=== PATIENT | male | born 1940 | race Caucasian/White ===

== ENCOUNTER → 2018-08-30 | Outpatient (CLI) | payer OTHER ==
--- NOTE | 2018-09-04 09:31 | P.ARTDOP ---
Arterial Doppler LOWER EXTREMITY ARTERIAL DOPPLER: DATE OF SERVICE: 08/30/2018 Reason for study: Bilateral claudication. Doppler waveforms: Atypical bilaterally throughout. Pulse volume recording: []. Pressure gradients: Above the low thigh level. Ankle-brachial indices: 0.52 on the right and 0.68 on the left. Toe pressures: 59 on the right, 56 on the left Impression: Moderate bilateral iliofemoral occlusive disease. Consider vascular surgery consultation.
== END | disposition home or self-care (01) ==
LOC: RADUSWWP 13:12
DX: I73.9 Peripheral vascular disease, unspecified (principal)
CPT/HCPCS: 93923

== ENCOUNTER → 2018-11-25 | Outpatient (CLI) | payer OTHER ==
[2018-11-25 13:14] LABS: HCT 40.3 % (39.0-53.0); HGB 13.8 gm/dL (13.0-17.5); MCH 33.7 pg (25.0-35.0); MCHC 34.4 g/dL (31.0-37.0); MCV 98.1 fL (80.0-100.0); Mean Platelet Volume 6.7; Platelet Count 242 k/uL (150-450); RDW 13.3 % (11.5-15.5); WBC 5.9 k/uL (3.8-10.6)
== END | disposition home or self-care (01) ==
LOC: LABPAT 12:21
PROVIDERS: ATTEND Internal Medicine Interventional Cardiology
DX: Z01.812 Encounter for preprocedural laboratory examination (principal); I73.9 Peripheral vascular disease, unspecified
CPT/HCPCS: 36415; 80051; 82565; 84520; 85027

== ENCOUNTER → 2018-11-27 | Day surgery (SDC) | payer OTHER ==
[2018-11-22 16:48] VITALS: BMI 28.1
[~2018-11-27] MED LIST: ALPRAZolam 0.25 MG TAB PO PRN; ASPIRIN 325 MG TAB PO STA; IOPAMIDOL-370 100ML BTL INJ ONE; LIDOCAINE 1% INJ 10MG/ML (20 ML MDV) SQ ONE; MIDAZOLAM 2 MG/2 ML VIAL IV ONE; SODIUM CHLORIDE 0.9% 1,000 ML IV SCH; SODIUM CHLORIDE 0.9% 1,000 ML in EMPTY BAG 1 BAG IV ONE
[2018-11-27 11:45] VITALS: RESP 18
[2018-11-27 11:49] LABS: Glucose,Whole Blood 96 mg/dL (75-99)
--- NOTE | 2018-11-27 14:15 | CC ---
CARDIAC CATHETERIZATION REPORT DATE OF SERVICE: 11/27/2018 PERFORMING PHYSICIAN: Cayden Archer MD. PROCEDURE PERFORMED: 1. An abdominal aortogram. 2. Bilateral lower extremity runoff. INDICATION: This is a pleasant 78-year-old gentleman with history of diabetes, hypertension, dyslipidemia, who sees Dr. Lazo in the office as an outpatient who was experiencing bilateral lower extremity intermittent claudication. He underwent an arterial duplex study by Dr. Lazo and was found to have severe bilateral femoral- popliteal disease. Because of that, he was brought today to undergo an aortogram with runoff. APPROACH: Right common femoral artery. COMPLICATION: None. LEVEL OF SEDATION: Moderate with a sedation length of 16 minutes. PROCEDURE DESCRIPTION: After obtaining an informed consent, the patient was brought to the cardiac cardiac cath lab radiology technologist. The right common femoral artery was cannulated using micropuncture technique, the micropuncture wire passed easily, then I placed a 5-Kazakh sheath. After that, I did an abdominal aortogram and bilateral lower extremities runoff using 5-Kazakh pigtail catheter which was initially placed at the level of the renal arteries. Then it was pulled into above the bifurcation of the aorta to right and left common iliac arteries. The procedure was completed without any complication. SELECTIVE PERIPHERAL ANGIOGRAM: 1. The aorta is calcified. It does have mild occlusive disease. 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 2. Common iliac arteries, the right common and left common iliac arteries are calcified. The right common iliac artery appeared to be angiographically normal. The ostial of the left common iliac artery appeared to have a lesion in the range of 60% to 70%. 3. Internal iliac arteries are patent. 4. External iliac artery appeared to have mild occlusive disease only. 5. Profunda are patent. 6. SFA, the right and left SFA are calcified with critical disease bilaterally. 7. Popliteal, the right popliteal appeared to have mild disease only. The left popliteal appeared to have critical lesion. 8. Below the knee, the arteries below the knee were not were not well visualized because of the patient portion. CONCLUSION: 1. Intermediate to severe disease involving the ostial left common iliac artery. 2. Critical bilateral femoral-popliteal disease. 3. Poorly visualized arteries below the knee bilaterally due to the patient motion during digital subtraction. POSTPROCEDURE MANAGEMENT: 1. FLORAL MERCHANDISER of the right and left SFA to be done. 2. Gradient check across the left common iliac artery to assess for the severity of the lesion. MMODL / IJN: [id number] /
--- NOTE | 2018-11-27 14:35 | IR ---
Fluoroscopy HISTORY: Pain in left leg 2.1 minutes fluoroscopy time supplied to the referring clinician. 102 intraoperative C-arm images do cument the procedure. See dictated report from cardiology.
[2018-11-27 18:27] VITALS: BP 131/77; PULSE 72
== END ==
LOC: CATHCVL 11:11
PROVIDERS: ATTEND Internal Medicine Interventional Cardiology
DX: I70.213 Atherosclerosis of native arteries of extremities with intermittent claudication, bilateral legs (principal); I70.0 Atherosclerosis of aorta; I71.9 Aortic aneurysm of unspecified site, without rupture; E11.51 Type 2 diabetes mellitus with diabetic peripheral angiopathy without gangrene; E78.5 Hyperlipidemia, unspecified; I10 Essential (primary) hypertension; E78.00 Pure hypercholesterolemia, unspecified; R01.1 Cardiac murmur, unspecified; Z87.891 Personal history of nicotine dependence; Z95.1 Presence of aortocoronary bypass graft; Z79.84 Long term (current) use of oral hypoglycemic drugs; Z79.02 Long term (current) use of antithrombotics/antiplatelets; Z79.899 Other long term (current) drug therapy
CPT/HCPCS: 36200; 75625; 75716; C1769 ×4; C1894; J2250; J2001; Q9967

== ENCOUNTER 2018-12-02 07:35 | Day surgery (SDC) | payer OTHER ==
[~2018-12-02 07:35] MED LIST changes: +ASPIRIN 325 MG TAB PO ONE; -ASPIRIN 325 MG TAB PO STA; -IOPAMIDOL-370 100ML BTL INJ ONE; -LIDOCAINE 1% INJ 10MG/ML (20 ML MDV) SQ ONE; -MIDAZOLAM 2 MG/2 ML VIAL IV ONE; -SODIUM CHLORIDE 0.9% 1,000 ML IV SCH
[2018-12-02] MEDS ORDERED: hydrALAZINE HCL 20 MG/ML 1 ML VIAL IVP STA ×2 (08:10→16:05)
[2018-12-02 08:18] LABS: Glucose,Whole Blood 118 mg/dL (75-99)
[2018-12-02] MEDS ORDERED: SODIUM CHLORIDE 0.9% 1,000 ML IV ONE (08:25)
[2018-12-02 08:26] LABS: HCT 39.2 % (39.0-53.0); HGB 13.7 gm/dL (13.0-17.5); MCH 34.2 pg (25.0-35.0); MCV 97.8 fL (80.0-100.0); Mean Platelet Volume 6.7; Platelet Count 245 k/uL (150-450); RBC 4.01 m/uL (4.30-5.90); RDW 13.6 % (11.5-15.5); WBC 6.5 k/uL (3.8-10.6)
[2018-12-02] MEDS ORDERED: MIDAZOLAM 2 MG/2 ML VIAL IV ONE (08:28)
[2018-12-02] MEDS ORDERED: LIDOCAINE 1% INJ 10MG/ML (20 ML MDV) SQ ONE (08:30)
[2018-12-02 08:34] LABS: Calcium 9.2 mg/dL (8.4-10.2); Potassium 4.5 mmol/L (3.5-5.1)
[2018-12-02] MEDS ORDERED: HYDROmorphone 1 MG/ML 1 ML SYRINGE IVP ONE (08:37)
[2018-12-02 09:07] LABS: Band Neutrophils % 1 %; Basophils # (M) 0.07 k/uL (0-0.2); Eosinophils # (M) 0.13 k/uL (0-0.7); Lymphocytes # (M) 1.17 k/uL (1.0-4.8); Monocytes # (M) 0.46 k/uL (0-1.0); Neutrophils % (M) 71 %; Nucleated Red Blood Cells 0 /100 WBC (0-0); Total Cells Counted 100
[2018-12-02] MEDS ORDERED: IOPAMIDOL-250 100ML BTL INTRAARTER ONE (09:32)
[2018-12-02] MEDS ORDERED: CLOPIDOGREL 75 MG TAB PO ONE (09:42)
[2018-12-02] MEDS ORDERED: SODIUM CHLORIDE 0.9% 1,000 ML IV SCH (09:45)
--- NOTE | 2018-12-02 12:04 | IR ---
Fluoroscopy HISTORY: Pain in both legs 18.6 minutes fluoroscopy time supplied to the referring clinician. 413 intraoperative C-arm images d ocument the procedure. See dictated report from cardiology.
--- NOTE | 2018-12-02 13:03 | AN ---
ANGIOGRAPHY REPORT DATE OF SERVICE: 12/02/2018 PERFORMING PHYSICIAN: Cayden Archer MD, Dry Pan Feeder. PROCEDURE PERFORMED: 1. Selective left lower extremity angiogram. 2. Balloon angioplasty of the left common iliac artery. 3. Intravascular ultrasound IVUS of the left popliteal and left SFA. 4. Atherectomy of the left popliteal and left SFA. 5. ASSOCIATE CHIEF NURSE of the left popliteal using 6 mm drug-coated balloon with good angiographic results. 6. Successful stenting of the left SFA using 7 x 80 mm Zilver PTX with an excellent angiographic results. INDICATION: This is a 75-year-old gentleman who sees Dr. Lazo in the office as an outpatient with history of hypertension and dyslipidemia who was experiencing bilateral lower extremities intermittent claudication and underwent a peripheral angiogram which revealed critical left SFA secondary to atherosclerosis and severe right SFA secondary to atherosclerosis as well. He was brought today to undergo a ASSOCIATE CHIEF NURSE of the left SFA and left popliteal. APPROACH: Right common femoral artery. COMPLICATION: None. LEVEL OF SEDATION: Moderate with sedation length of 63 minutes. PROCEDURE DESCRIPTION: After obtaining an informed consent, the patient was brought to the cardiac farm labor contractor. The right common femoral artery was cannulated using micropuncture technique, the micropuncture wire passed easily, then I placed a 6-Indonesian sheath in the right common femoral artery. Anticoagulation was initiated using heparin and the patient was given 6000 units of heparin at the beginning of the procedure with continuous ACT monitoring throughout the procedure. Subsequently, I did select the left SFA using 0.035 [place] Advantage wire with the backup support of 5-Indonesian Rim catheter. After that I did exchange my 11 cm 6-Indonesian sheath into 55 cm Salvatore sheath using 0.035 [place] Advantage wire. I had a hard time getting the sheath up and over because there was a lesion in the left common iliac artery and I had to do balloon angioplasty of the lesion to open it up and advance the sheath through it. After that, I did selective left lower extremity angiogram which revealed severe below- the-knee disease with critical disease involving the left popliteal and left SFA. After that, I did intravascular ultrasound IVUS of the left popliteal and left SFA, which showed me a diameter vessel of about 6.5 mm. After that, I did atherectomy of the left SFA using the Turbo Hawk device with extraction of significant amount of plaque. After that, I did balloon angioplasty using 6 mm AngioSculpt balloon. I get adequate angiographic results for the left popliteal and dissection involving the left SFA and because of that, I decided to do DCP of the left popliteal and stenting of the left SFA. I did balloon angioplasty of the left popliteal using the 6 mm and impacted drug coated balloon which was inflated under fluoroscopy guidance for 3 minutes. The following angiogram showed adequate angiographic results with haziness involving the lesion but good flow and no contrast staining. For the left SFA, I did place a 7 x 80 mm Zilver PTX drug-coated stent where the stent was positioned under fluoroscopy guidance and deployed under fluoroscopy guidance. Then I post dilated the stent using 6 mm balloon. The following angiogram showed good angiographic results and the procedure was completed without any complication. After that. I did exchange my 55 cm sheath into 11 cm 7-Indonesian sheath because there was some oozing around the 6-Indonesian sheath. The procedure was completed without any complication. I did selective right common femoral artery angiogram by the end. POSTPROCEDURE MANAGEMENT: 1. ASSOCIATE CHIEF NURSE of the right SFA. 2. Addressed the lesion in the left popliteal and left common iliac artery once the patient comes back to have a ASSOCIATE CHIEF NURSE of the right SFA. 3. Follow up with the patient. MMODL / IJN: [id number] /
[2018-12-02 18:13] VITALS: BMI 26.8
[2018-12-02] MEDS: amLODIPine 5 MG TAB PO SCH (19:51)
[2018-12-02] MEDS: LOSARTAN 50 MG TAB PO SCH (19:51)
[2018-12-02 20:15] LABS: Glucose,Whole Blood 129 mg/dL (75-99)
[2018-12-03 06:05] LABS: Glucose,Whole Blood 111 mg/dL (75-99)
[2018-12-03] MEDS: INSULIN ASPART (NovoLOG) 100 UNIT/ML VIAL SQ SCH ×4 (06:29→20:44)
[2018-12-03] MEDS: LOSARTAN 50 MG TAB PO SCH (08:43)
[2018-12-03] MEDS ORDERED: NON FORMULARY DRUG (Vitamin B Complex [Vitamin B Complex] 1 EACH) PO SCH (09:00)
[2018-12-03] MEDS: CLOPIDOGREL 75 MG TAB PO SCH (09:39)
[2018-12-03] MEDS: ASPIRIN 81 MG PO SCH (09:39)
[2018-12-03] MEDS: ATORVASTATIN 20 MG TAB PO SCH (09:41)
[2018-12-03] MEDS: AMIODARONE 200 MG TAB PO SCH (09:41)
[2018-12-03 11:38] LABS: Glucose,Whole Blood 97 mg/dL (75-99)
[2018-12-03] MEDS ORDERED: SODIUM CHLORIDE 0.9% 1,000 ML IV SCH (16:15)
[2018-12-03 16:44] LABS: Glucose,Whole Blood 127 mg/dL (75-99)
[2018-12-03] MEDS: amLODIPine 5 MG TAB PO SCH (19:56)
[2018-12-03 20:41] LABS: Glucose,Whole Blood 138 mg/dL (75-99)
--- NOTE | 2018-12-03 23:25 | P.PN ---
Progress Note - Text Progress Note Date: 12/03/18 This is a pleasant 78-year-old gentleman with a past medical history significant for peripheral arterial disease who was experiencing bilateral lower extremities intermittent claudication and underwent a peripheral angiogram which revealed critical left SFA and severe right SFA disease. Yesterday he underwent successful balloon angioplasty of the left SFA/popliteal alone with successful balloon angioplasty of the left common iliac artery. The procedure was performed from right groin with fecal these going up and over around the aortic bifurcation. On follow-up with the patient today, he seems to be feeling overall better. I still can't feel a good right dorsalis pedis pulse on him. The left foot is warm over old. The right groin is soft and nontender and without any bruises. The patient is going to stay overnight to undergoIn the morning balloon angiop lasty of the right leg
[2018-12-04 06:06] LABS: Glucose,Whole Blood 117 mg/dL (75-99)
[2018-12-04] MEDS: INSULIN ASPART (NovoLOG) 100 UNIT/ML VIAL SQ SCH ×4 (06:07→20:29)
[2018-12-04 08:00] LABS: HCT 36.9 % (39.0-53.0); HGB 12.9 gm/dL (13.0-17.5); MCH 34.3 pg (25.0-35.0); MCHC 34.9 g/dL (31.0-37.0); MCV 98.3 fL (80.0-100.0); Mean Platelet Volume 6.8; Platelet Count 189 k/uL (150-450); RBC 3.75 m/uL (4.30-5.90); RDW 13.6 % (11.5-15.5); WBC 7.4 k/uL (3.8-10.6)
[2018-12-04 08:05] LABS: Calcium 8.6 mg/dL (8.4-10.2); Potassium 4.3 mmol/L (3.5-5.1)
[2018-12-04 10:47] LABS: Anisocytosis (M) Present; Band Neutrophils % 1 %; Eosinophils # (M) 0.15 k/uL (0-0.7); Lymphocytes # (M) 1.26 k/uL (1.0-4.8); Monocytes # (M) 0.74 k/uL (0-1.0); Neutrophils % (M) 70 %; Nucleated Red Blood Cells 0 /100 WBC (0-0); Poikilocytosis (M) Present; Total Cells Counted 100
[2018-12-04 11:55] LABS: Glucose,Whole Blood 98 mg/dL (75-99)
[2018-12-04] MEDS: CLOPIDOGREL 75 MG TAB PO SCH (12:32)
[2018-12-04] MEDS: AMIODARONE 200 MG TAB PO SCH (12:32)
[2018-12-04] MEDS: ASPIRIN 81 MG PO SCH (12:32)
[2018-12-04] MEDS: ATORVASTATIN 20 MG TAB PO SCH (12:32)
[2018-12-04 17:04] LABS: Glucose,Whole Blood 89 mg/dL (75-99)
[2018-12-04] MEDS ORDERED: LIDOCAINE 1% INJ 10MG/ML (20 ML MDV) SQ ONE (18:26)
[2018-12-04] MEDS ORDERED: MIDAZOLAM 2 MG/2 ML VIAL IV ONE (18:30)
[2018-12-04] MEDS: fentaNYL (PF) 50 MCG/ML 2 ML AMP IV ONE ×2 (18:30→19:44)
[2018-12-04] MEDS ORDERED: IV FLUID CONTINUATION 700 ML IV ONE (18:34)
[2018-12-04] MEDS ORDERED: HYDROmorphone 1 MG/ML 1 ML SYRINGE IVP ONE (19:30)
[2018-12-04] MEDS ORDERED: IOPAMIDOL-370 100ML BTL INJ ONE (19:44)
--- NOTE | 2018-12-04 19:52 | P.PCN ---
Date of Procedure: 12/04/18 Operative Findings: PERCUTANEOUS PERIPHERAL INTERVENTION Performing physician: Cayden Archer M.D. Procedure performed: 1. Right lower extremity angiogram 2. Intravascular ultrasound of the right popliteal and right SFA 3. Atherectomy of the right popliteal and right SFA using the orbital atherectomy device (CSI), using 1.5 claudia 4. Successful balloon angioplasty of the right popliteal using 5 x 200 mm balloon with an excellent angiographic results 5. Successful stenting of the right SFA using silver PTX drug-coated stent with an excellent angiographic results 6. Selective left common iliac artery angiogram 7. Selective left common femoral artery angiogram Indication: This is a pleasant 78-year-old gentleman who sees Dr. Lazo in the office as an outpatient who was experiencing bilateral lower extremities intermittent claudication and underwent a peripheral angiogram recently and that revealed critical left SFA and severe right SFA disease. He underwent recently a INVESTMENT TRADER of the left SFA and he was brought today to undergo a INVESTMENT TRADER of the right SFA. Approach: Left common femoral artery. Complication: None Level of sedation: Moderate with sedation length of 72 minutes Procedure description: After obtaining an informed consent the patient was brought to the cardiac microbiology lab assistant. The left common femoral artery was cannulated using micropuncture technique under ultrasound guidance, the micropuncture wire passed easily then I placed a 6-Guamanian 11 cm sheath in the left common femoral artery. At that point anticoagulation was initiated using heparin and the patient was given 6000 of heparin IV at the beginning of the procedure. Subsequently I did selective left SFA using 035 glide advantage wire with a backup support of 5-Guamanian rim catheter. After that I did exchange my 11 cm 6- Guamanian sheath into 70 cm 6-Guamanian sheath using an 035 glide advantage wire with a backup support of 6-Guamanian multipurpose catheter. The tip of the sheath was positioned in the right common femoral artery. Subsequently I did right lower extremity angiogram which revealed severe disease involving the right popliteal and right SFA. Intravascular ultrasound was performed over 014 wire which was high-dose ST wire and that revealed a diameter of the popliteal/SFA about 5.5 mm. I did exchange my 014 hydrous to wire into a wall for fiber wire preparing for rotational atherectomy which was performed using 1.5 mm claudia. It was performed at the level of the right popliteal and right SFA under local, medium, and high-speed. Subsequently I did perform an angioplasty of the right popliteal using 5 mm balloon with the following angiogram showing excellent angiographic results. The angioplasty on the right SFA was performed using the same balloon but it did reveal severe dissection. Because of that I decided to cover that using stent. I did deploy silver PTX drug-coated stent which was 7 x 140 mm stent in the mid to distal right SFA where the stent was positioned and deployed under fluoroscopy guidance and subsequently a prostatic the stent using 6 mm balloon with the following angiogram showing excellent angiographic results. For the ostial/proximal right SFA I did balloon angioplasty using the angiosculp balloon which was 6 x 40 mm. The balloon was inflated under 10 luis for 30 seconds. The following angiogram showed good angiographic results as well. The procedure was completed without any complication. I did after that exchange my long sheath into short 11 cm 7-Guamanian sheath because there was some oozing around the 6-Guamanian sheath. Findings related selective left common femoral artery angiogram. Before I did that I did selective left common iliac angiogram which revealed iliac lesion appeared to be in the range of 60%. Postprocedure management: Dual antiplatelet therapy Standard groin care Follow-up with the patient
[2018-12-04] MEDS ORDERED: CLOPIDOGREL 75 MG TAB PO ONE (19:59)
[2018-12-04 20:17] LABS: Glucose,Whole Blood 96 mg/dL (75-99)
--- NOTE | 2018-12-04 21:01 | IR ---
Fluoroscopy HISTORY: Pain in right leg 21.2 minutes fluoroscopy time supplied to the referring clinician. 448 intraoperative C-arm images d ocument the procedure. See dictated report from cardiology.
[2018-12-04] MEDS: amLODIPine 5 MG TAB PO SCH (21:08)
[2018-12-05 06:11] LABS: Glucose,Whole Blood 96 mg/dL (75-99)
[2018-12-05 06:12] VITALS: PULSE 81; RESP 18
[2018-12-05] MEDS: INSULIN ASPART (NovoLOG) 100 UNIT/ML VIAL SQ SCH (06:12)
[2018-12-05 06:41] LABS: HCT 34.1 % (39.0-53.0); HGB 11.8 gm/dL (13.0-17.5); MCH 34.1 pg (25.0-35.0); MCHC 34.6 g/dL (31.0-37.0); MCV 98.6 fL (80.0-100.0); Mean Platelet Volume 7.4; Platelet Count 187 k/uL (150-450); RBC 3.46 m/uL (4.30-5.90); RDW 13.6 % (11.5-15.5); WBC 7.1 k/uL (3.8-10.6)
[2018-12-05 06:55] LABS: Calcium 8.3 mg/dL (8.4-10.2); Potassium 4.5 mmol/L (3.5-5.1)
[2018-12-05 08:02] VITALS: BP 116/61; TEMP 98
[2018-12-05 08:04] LABS: Basophils # (M) 0.14 k/uL (0-0.2); Eosinophils # (M) 0.14 k/uL (0-0.7); Lymphocytes # (M) 0.92 k/uL (1.0-4.8); Neutrophils % (M) 76 %; Nucleated Red Blood Cells 0 /100 WBC (0-0); Total Cells Counted 100
--- NOTE | 2018-12-05 08:21 | P.DS ---
Providers Date of admission: December [id number] Attending physician: Cayden Archer Primary care physician: [facility] Course: This is a pleasant 78-year-old gentleman who sees Dr. Lazo in the office as an outpatient who was diagnosed recently with severe PAD which was symptomatic with bilateral lower extremities intermittent claudication. The angiogram revealed critical bilateral SFA disease. The patient underwent 2 days ago successful balloon angioplasty of the left SFA and yesterday successful balloon angioplasty of the right SFA. On follow-up with him today, he is asymptomatic. The left groin is slightly tender without discrete hematoma. The patient is going to be discharged home on dual antiplatelet therapy as well as a statin and he will follow-up with me next week in the office Plan - Discharge Summary Discharge Rx Participant: Yes New Discharge Prescriptions: New Clopidogrel Bisulfate [Plavix] 75 mg PO DAILY #90 tab Continue Vitamin B Complex 1 each PO DAILY Amiodarone [Cordarone] 200 mg PO DAILY amLODIPine [Norvasc] 5 mg PO HS Losartan [Cozaar] 50 mg PO BID Atorvastatin [Lipitor] 20 mg PO DAILY Aspirin 81 mg PO ONCE Discontinued metFORMIN HCL [Glucophage] 500 mg PO DAILY Discharge Medication List Amiodarone [Cordarone] 200 mg PO DAILY 11/22/18 [History] Atorvastatin [Lipitor] 20 mg PO DAILY 11/22/18 [History] Losartan [Cozaar] 50 mg PO BID 11/22/18 [History] Vitamin B Complex 1 each PO DAILY 11/22/18 [History] amLODIPine [Norvasc] 5 mg PO HS 11/22/18 [History] Aspirin 81 mg PO ONCE 12/02/18 [History] Clopidogrel Bisulfate [Plavix] 75 mg PO DAILY #90 tab 12/05/18 [Rx] Follow up Appointment(s)/Referral(s): Cayden Archer MD [STAFF PHYSICIAN] - 12/10/18 1:45 pm (Sunday) Patient Instructions/Handouts: Peripheral Vascular Angioplasty (DC), Peripheral Vascular Stent Placement (DC)
[2018-12-05] MEDS: ASPIRIN 81 MG PO SCH (08:33)
[2018-12-05] MEDS: AMIODARONE 200 MG TAB PO SCH (08:33)
[2018-12-05] MEDS: ATORVASTATIN 20 MG TAB PO SCH (08:33)
[2018-12-05] MEDS: CLOPIDOGREL 75 MG TAB PO SCH (08:33)
== END 2018-12-05 09:52 | disposition home or self-care (01) ==
LOC: CATHCVL 07:35 → 3SCARD 17:53 → CATHCVL 12-05 09:52
PROVIDERS: ATTEND Internal Medicine Interventional Cardiology
DX: I70.211 Atherosclerosis of native arteries of extremities with intermittent claudication, right leg (principal); E11.51 Type 2 diabetes mellitus with diabetic peripheral angiopathy without gangrene; I25.10 Atherosclerotic heart disease of native coronary artery without angina pectoris; I10 Essential (primary) hypertension; E78.5 Hyperlipidemia, unspecified; E78.00 Pure hypercholesterolemia, unspecified; R09.89 Other specified symptoms and signs involving the circulatory and respiratory systems; R01.1 Cardiac murmur, unspecified; Z87.891 Personal history of nicotine dependence; Z95.1 Presence of aortocoronary bypass graft; Z79.84 Long term (current) use of oral hypoglycemic drugs; Z79.02 Long term (current) use of antithrombotics/antiplatelets; Z79.82 Long term (current) use of aspirin; Z79.899 Other long term (current) drug therapy
CPT/HCPCS: 37220; 37227 ×2; 85347; 37252 ×2; 80048 ×3; 82565; 85025 ×3; C1894 ×5; C1714 ×2; C1769 ×8; C1725 ×4; C1887; C1753 ×2; C2623; C1874 ×2; J2250 ×2; J0360; J2001 ×2; J3010; J1170 ×2; J1644 ×2; Q9966; Q9967

== ENCOUNTER 2020-09-22 09:59 | Day surgery (SDC) | payer OTHER ==
[2020-09-20 12:05] VITALS: BMI 27.3
[~2020-09-22 09:59] MED LIST changes: -ALPRAZolam 0.25 MG TAB PO PRN; -ASPIRIN 325 MG TAB PO ONE; +CYCLOPENTOLATE 1% OPHTH SOLN 2 ML BTL OP PRN; +LACTATED RINGERS 1,000 ML IV SCH; +MOXIFLOXACIN HCL 0.5% DROPS 3 ML BTL OP PRN; +PHENYLEPHRINE 2.5% OPHTH DRP 2ML OP PRN; -SODIUM CHLORIDE 0.9% 1,000 ML in EMPTY BAG 1 BAG IV ONE; +TETRACAINE 0.5% OPHTH (PF) DROPS 4 ML BTL OP PRN; +TIMOLOL 0.5% OPHTH DROPS 5 ML BTL OP PRN
[2020-09-22 11:03] VITALS: RESP 16; TEMP 97.5
[2020-09-22 11:24] LABS: Glucose,Whole Blood 111 mg/dL (75-99)
[2020-09-22] MEDS ORDERED: MIDAZOLAM 2 MG/2 ML VIAL ONE (12:02)
[2020-09-22] MEDS ORDERED: fentaNYL (PF) 50 MCG/ML 2 ML AMP ONE (12:02)
[2020-09-22] MEDS ORDERED: EPINEPHrine (PF) 0.3 ML in BALANCED SALT IRRIG SOLN COMB2 500 ML IRRIGATION ONE (12:07)
[2020-09-22] MEDS ORDERED: BALANCED SALT IRRIG SOLN COMB2 15 ML IRRIG.SOLN IRRIGATION ONE (12:18)
[2020-09-22] MEDS ORDERED: HYALURONATE SODIUM INTRAOCULAR 1 EACH SYRINGE (12MG/ML) INTRAOCULA ONE (12:18)
[2020-09-22] MEDS ORDERED: LIDOCAINE 1% (PF) 10MG/ML VIAL MISCELLANE ONE (12:19)
--- NOTE | 2020-09-22 12:36 | P.OP ---
Date of Procedure: 09/22/20 Preoperative Diagnosis: NS & CS & PSC Postoperative Diagnosis: same Procedure(s) Performed: PIOL, OS Implants: [id number] 17.50 Anesthesia: MAC Surgeon: Yariel Alfaro Pathology: none sent Condition: stable Disposition: same day Indications for Procedure: blurry vision Operative Findings: no complications
[2020-09-22 12:53] VITALS: BP 166/81; PULSE 52
--- NOTE | 2020-09-22 19:56 | OP ---
OPERATIVE REPORT DATE OF SURGERY: September 22, 2020. PROCEDURE: Phacoemulsification of cataract and intraocular lens implant of the left eye. PREOPERATIVE DIAGNOSES: Nuclear sclerosis, cortical sclerosis, posterior subcapsular cataract. POSTOPERATIVE DIAGNOSES: Nuclear sclerosis, cortical sclerosis, posterior subcapsular cataract. OPERATION: Clear cornea phacoemulsification of cataract left/OS eye. ESTIMATED BLOOD LOSS: Zero. SPECIMEN TAKEN: None. NARRATIVE: After obtaining the appropriate consent, the patient was brought to the Operating Room where the patient was placed under cardiac monitoring and prepped and draped in the usual sterile manner. At the 5 o'clock position a 15 degree super sharp blade was used to create a paracentesis followed by instillation of 1% Xylocaine MPF 50:50 mix with BSS into the anterior chamber. This was followed by Amvisc to stabilize the anterior chamber. At the 3 o'clock position a self-sealing corneal flap incision was created using 2.8 mm claudia keratome. A cystotome was used to initiate a continuous tear capsulorrhexis which was completed with the Utrata forceps. A Binkhorst cannula was used to hydrodissect the lens nucleus followed by hydrodelineation. Phacoemulsification of the lens was performed utilizing phacochop in 37.25 Seconds at 26% power. The remaining cortical material was removed using the irrigation aspiration mode followed by additional 1% Xylocaine MPF into the anterior chamber followed by viscoelastic to stabilize the capsular bag. A [employer]ch [employer] Lomb MX 60E 17.5 diopter posterior chamber lens was placed into the capsular bag without difficulty. The remaining viscoelastic material was removed from the anterior chamber with the irrigation/aspiration. Balanced salt solution was used to normalize the intraocular pressure. The incision was checked for watertight integrity. The patient then received two drops of 0.5% timolol followed by two drops Vigamox, was lightly patched and shielded in the usual manner. There were no complications from the procedure. The patient tolerated the procedure well and was returned to recovery in good condition. MMODL / IJN: [id number] /
== END 2020-09-22 13:26 | disposition home or self-care (01) ==
LOC: OR 09:59
PROVIDERS: ATTEND Ophthalmology
DX: H25.12 Age-related nuclear cataract, left eye (principal)
CPT/HCPCS: 66984; C1780; J2250; J0171; J3010; J2001